=== PATIENT | female | born 1935 | race Hispanic/Latino ===

== ENCOUNTER 2017-10-24 09:55 | Emergency (ER) | payer MEDICARE ==
[2017-10-24 09:57] VITALS: PULSE 80
[2017-10-24 10:16] VITALS: BMI 25.9
--- NOTE | 2017-10-24 10:27 | ED PDOC ---
Arrival/HPI - General Chief Complaint: Upper Extremity Problem/Injury Time Seen by Provider: 10/24/17 10:22 Historian: Patient - History of Present Illness Narrative History of Present Illness (Text): 10/24/17 10:24 82yo female with PMhx of hypertension, Afib and hypercholestrolemia who present with complaint of left hand swelling x 4days. states her left fingers hyperextended, bending backwards, when she placed her hand at the edge of a table and tried to stand up. States she had pain to the hand for 2days, but then it resolved and swelling persisted. she did not take any analgesic. Denies any other complaint. 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) Hx Shingles: Yes - Integumentary Hx Dermatological Disorder: Yes (morphea, discolorations over arms and abd) Other/Comment: skin ca on forehead - Musculoskeletal/Rheumatological Hx Musculoskeletal Disorders: (SCOLIOSIS,OSTEOPOROSIS) Hx Falls: No - Gastrointestinal Hx Gastrointestinal Disorders: (recto sigmoid colectomy with urethral stents jpx2) Other/Comment: pt denies ureteral stents - Genitourinary/Gynecological Hx Genitourinary Disorders: Yes Hx Reproductive Disorders: No - Psychiatric Hx Depression: No Hx Emotional Abuse: No Hx Physical Abuse: No Hx Substance Use: No - Past Surgical History Past Surgical History: No Previous - Surgical History Hx Amputation: No Hx Cardiac Catheterization: Yes (2010) Hx Cholecystectomy: Yes - Anesthesia Hx Anesthesia: Yes Hx Anesthesia Reactions: No Hx Malignant Hyperthermia: No - Suicidal Assessment Feels Threatened In Home Enviroment: No Family/Social History - Physician Review Nursing Documentation Reviewed: Yes Family/Social History: Unknown Family HX Smoking Status: Never Smoked Hx Alcohol Use: No Hx Substance Use: No Allergies/Home Meds Allergies/Adverse Reactions: Allergies opium (anthroposophic) Allergy (Verified 10/24/17 10:17) ANAPHYLAXIS Home Medications: Home Meds Medication Instructions Recorded Confirmed Levothyroxine [Synthroid] 0.088 mg PO DAILY 08/03/12 10/24/17 Pregabalin [Lyrica] 25 mg PO DAILY 08/03/12 10/24/17 Fluticasone Nasal [Flonase] 1 spray NS DAILY 06/19/13 10/24/17 Warfarin [Coumadin] 2 mg PO DAILY 12/31/13 10/24/17 Furosemide [Lasix] 40 mg PO DAILY 10/24/17 10/24/17 Metoprolol Succinate [Toprol XL] 50 mg PO BID 10/24/17 10/24/17 Simvastatin [Zocor] 20 mg PO DAILY 10/24/17 10/24/17 Review of Systems - Physician Review All systems were reviewed & negative as marked: Yes - Review of Systems Constitutional: Normal Eyes: Normal ENT: Normal Respiratory: Normal Cardiovascular: Normal Gastrointestinal: Normal Genitourinary Female: Normal Musculoskeletal: Arthralgias (Left hand swelling) Skin: Normal Neurological: Normal Endocrine: Normal Hemo/Lymphatic: Normal Psychiatric: Normal Physical Exam Vital Signs Reviewed: Yes Vital Signs Temp Pulse Resp BP Pulse Ox 10/24/17 10:10 97.7 F 64 18 120/73 98 Temperature: Afebrile Blood Pressure: Normal Pulse: Regular Respiratory Rate: Normal Appearance: Positive for: Well-Appearing, Non-Toxic, Comfortable Pain Distress: None Mental Status: Positive for: Alert and Oriented X 3 - Systems Exam Head: Present: Atraumatic, Normocephalic Pupils: Present: PERRL Extroacular Muscles: Present: EOMI Conjunctiva: Present: Normal Mouth: Present: Moist Mucous Membranes Neck: Present: Normal Range of Motion Respiratory/Chest: Present: Clear to Auscultation, Good Air Exchange. No: Respiratory Distress, Accessory Muscle Use Cardiovascular: Present: Regular Rate and Rhythm, Normal S1, S2. No: Murmurs Abdomen: Present: Normal Bowel Sounds. No: Tenderness, Distention, Peritoneal Signs Back: Present: Normal Inspection Upper Extremity: Present: Normal ROM, NORMAL PULSES, Swelling (Prominent sweling of left volar hand), Neurovascularly Intact, Other (Strenght 5/5). No: Cyanosis, Edema, Tenderness Lower Extremity: Present: Normal Inspection. No: Edema Neurological: Present: GCS=15, CN II-XII Intact, Speech Normal Skin: Present: Warm, Dry, Normal Color. No: Rashes Psychiatric: Present: Alert, Oriented x 3, Normal Insight, Normal Concentration Medical Decision Making ED Course and Treatment: 10/24/17 12:30 Left hand xray - No acute fracture Olman wrap applied. Pt instructed to keep hand elevated, ice and compress she dis not have pain in ED and was not given analgesic Referred to her PMD - Lab Interpretations Lab Results: Lab Results 10/24/17 10:50: PT 32.6 H, INR 2.78 H, APTT 47.9 H - RAD Interpretation Radiology Orders: 10/24/17 10:22 HAND LEFT 3 VIEWS ROUTINE [RAD] Stat Disposition/Present on Arrival - Present on Arrival Any Indicators Present on Arrival: No History of DVT/PE: No History of Uncontrolled Diabetes: No Urinary Catheter: No History of Decub. Ulcer: No History Surgical Site Infection Following: None - Disposition Have Diagnosis and Disposition been Completed?: Yes Diagnosis: Hand sprain Disposition: HOME/ ROUTINE Disposition Time: 12:20 Patient Plan: Discharge Patient Problems: Current Active Problems Problem Status Onset Hand sprain Acute Condition: STABLE Discharge Instructions (ExitCare): Hand Pain (DC) Additional Instructions: Apply ice, compress and keep elevated follow up with your Doctor Referrals: Grupo Bronson MD [Primary Care Provider] - Follow up with primary Forms: [employer] ([place]ian)
[2017-10-24 11:08] LABS: INR 2.78 (0.93-1.08); PROTHROMBIN TIME 32.6 SECONDS (9.4-12.5)
[2017-10-24 11:09] LABS: PARTIAL THROMBOPLASTIN TIME 47.9 Seconds (25.1-36.5)
--- NOTE | 2017-10-24 12:15 | RAD ---
PROCEDURE: Left Hand Radiographs. HISTORY: hand swelling COMPARISON: None. FINDINGS: BONES: Normal. No fracture. JOINTS: Degenerative changes are seen in the DIP joints and at the base of the thumb SOFT TISSUES: Normal. OTHER FINDINGS: None. IMPRESSION: Mild osteoarthritis
[2017-10-24 12:40] VITALS: BP 116/73; PULSE 70; RESP 16; TEMP 98; O2SAT 97
== END 2017-10-24 12:43 | disposition home or self-care (01) ==
LOC: ED 09:55
DX: S63.92XA Sprain of unspecified part of left wrist and hand, initial encounter (principal); X50.0XXA Overexertion from strenuous movement or load, initial encounter; Y92.89 Other specified places as the place of occurrence of the external cause; I10 Essential (primary) hypertension